=== PATIENT | male | born 1955 | race Caucasian/White ===

== ENCOUNTER 2020-11-13 11:53 | Emergency (ER) | payer OTHER, SELFPAY ==
--- NOTE | ~2020-11-13 | XR_ITS ---
XR wrist LT min 3V DATE: 11/13/2020 12:22 INDICATION: Generalized pain and swelling for 3 days. No known injury. TECHNIQUE: 4 views COMPARISON: None FINDINGS: There is calcification of the triangular cartilage. There is mild chondrocalcinosis at the wrist joint. There is osteoarthritic change at multiple joints including radiocarpal joint, triscaphe joint, with particular involvement of the first through third metacarpophalangeal and multiple interphalangeal bella ints. No fracture or dislocation, periosteal reaction or bone destruction. 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 [facility]
--- NOTE | 2020-11-13 11:56 | ED.GENADULT ---
HPI - General Adult General Chief complaint: Extremity Injury, Upper Stated complaint: pain left wrist/swelling Time Seen by Provider: 11/13/20 11:56 Source: patient Mode of arrival: ambulatory Limitations: no limitations History of Present Illness HPI narrative: 65-year-old male patient presents to the [facility] with complaints of left wrist pain for the past 3 days. Patient denies any specific injury to the left wrist that he is aware of. Patient states that it started aching on Friday and has gotten increasingly worse and actually has woken him up and is worse at nighttime. Patient states he has tried taking some Advil for his pain which has not really helped much. 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 Patient states he has episodes of numbness and tingling to bilateral hands here and there over the years but nothing consistent. Patient states he noticed that the pain is getting worse along with the swelling. Denies any numbness or tingling to the fingertips at this time. Related Data Home Medications Medication Instructions Recorded Confirmed aspirin [Adult Aspirin] 81 mg PO DAILY 11/13/20 11/13/20 atorvastatin 40 mg PO DAILY 11/13/20 11/13/20 clopidogrel [Plavix] 75 mg PO DAILY 11/13/20 11/13/20 lisinopril 10 mg PO DAILY 11/13/20 11/13/20 metoprolol tartrate 25 mg PO BID 11/13/20 11/13/20 Allergies Allergy/AdvReac Type Severity Reaction Status Date / Time No Known Allergies Allergy Verified 11/13/20 12:10 Review of Systems Review of Systems: Narrative: CONSTITUTIONAL: Denies fever, chills, or sweats. EYES: Denies visual changes, redness, or discharge. ENT: Denies rhinorrhea, congestion, sore throat, or otalgia. CARDIOVASCULAR: Denies chest pain, palpitations, or edema. RESPIRATORY: Denies cough or dyspnea. GASTROINTESTINAL: Denies abdominal pain, nausea, vomiting, or diarrhea. GENITOURINARY: Denies dysuria or hematuria. SKIN: Denies rash or itching. MUSCULOSKELETAL: Denies back pain, joint pain, or myalgia. Positive left wrist pain NEUROLOGIC: Denies headache, numbness, or weakness. PSYCHIATRIC: Denies anxiety or depression. [facility] Past Medical History Medical History (Updated 01/04/21 @ 12:44 by BANDAR Clark) Back fracture Fracture of right ankle Fracture of right wrist Hypercholesterolemia Hypertension Myocardial infarction With 2 stents placed Comments At the time of my signature I agree with nursing past medical history, surgical, social, and family history. There is no relevant family history pertinent to the presenting complaint. Exam Narrative: Exam Narrative: GENERAL: Well-appearing, well-nourished, and in no acute distress. HEAD: Normocephalic, atraumatic. EYES: PERRLA and EOMI. ENT: Nares clear, no rhinorrhea or epistaxis. Mucous membranes moist. NECK: Supple. No lymphadenopathy CHEST: Clear to auscultation. No respiratory distress. HEART: Regular rate and rhythm. No murmur heard. Normal peripheral pulses. ABDOMEN: Soft, nontender, nondistended, normal active bowel sounds. EXTREMITIES: The L wrist is without obvious asymmetry or deformity when compared to the R wrist. No surface trauma, open wounds, or obvious deformity. There is slight swelling to the left hand as compared to the right. No overlying erythema or warmth. No bony crepitus or focal area of TTP. No scaphoid fullness or tenderness to direct palpation or axial load. Pain with flex/extension, normal ulnar/radial deviation. Ulnar and radial pulses intact. Positive Phalen's/Tinel's sign. Positive Kirsten test. SKIN: Warm, dry, no rash. NEURO: No focal deficits. Alert and oriented x3. Course Reevaluation(s) Reevaluation #1: Discussed with patient that his x-ray came back showing that he might have a little bit of a gout flareup to the wrist. Discussed with patient we will go ahead and give him some oral steroids to help with inflammation and the pain however I would also recommend that
[2020-11-13 12:04] VITALS: BP 154/86; PULSE 84; RESP 18; TEMP 36.8; O2SAT 98
== END 2020-11-13 12:50 | disposition home or self-care (01) ==
PROVIDERS: Emergency Provider Nurse Practitioner Family
DX: G89.29 Other chronic pain (principal); M25.532 Pain in left wrist; M10.9 Gout, unspecified; E78.00 Pure hypercholesterolemia, unspecified; I10 Essential (primary) hypertension; I25.2 Old myocardial infarction; Z95.5 Presence of coronary angioplasty implant and graft
CPT/HCPCS: 73110; 99213; G0463